=== PATIENT | female | born 1985 | race Caucasian/White ===

== ENCOUNTER 2018-03-05 02:14 | Emergency (ER) | payer OTHER ==
--- NOTE | 2018-03-05 02:31 | EDPHY ---
H & P Stated Complaint: suprapubic pain that woke pt up from sleep Time Seen by Provider: 03/05/18 02:31 HPI/ROS: HPI CHIEF COMPLAINT: Sudden onset pelvic pain. HISTORY OF PRESENT ILLNESS: This is a 32-year-old female, she is otherwise healthy without any significant medical history presents emergency room with sudden onset pelvic pain. Patient states she was having intercourse. She got sudden-onset mainly right-sided adnexal sharp stabbing pain. Progressively got worse. She stepped to stop having intercourse. She now complains of some right -sided chest pain with this. Right upper abdominal pain. However main complaint of pain is right adnexal pain. Patient has never had this before. She is unsure if she is . Past Medical History: Denies significant medical history Past Surgical History: No recent surgical history Social History: Denies drugs alcohol tobacco. Family History: Noncontributory. ROS REVIEW OF SYSTEMS: 10 Systems were reviewed and negative with the exception of the elements mentioned in the history of present illness. Exam Constitutional triage nursing summary reviewed, vital signs reviewed, awake/ alert. Eyes normal conjunctivae and sclera, EOMI, PERRLA. HENT normal inspection, atraumatic, moist mucus membranes, no epistaxis, neck supple/ no meningismus, no raccoon eyes. Respiratory clear to auscultation bilaterally, normal breath sounds, no respiratory distress, no wheezing. Cardiovascular rate normal, regular rhythm, no murmur, no edema, distal pulses normal. Gastrointestinal moderate amount of tenderness and right adnexa, left adnexa and suprapubic. , normal bowel sounds, no distension, no pulsatile mass. Genitourinary no CVA tenderness. Musculoskeletal no midline vertebral tenderness, full range of motion, no calf swelling, no tenderness of extremities, no meningismus, good pulses, neurovascularly intact. Skin pink, warm, & dry, no rash, skin atraumatic. Neurologic awake, alert and oriented x 3, AAOx3, moves all 4 extremities equally, motor intact, sensory intact, CN II-XII intact, normal cerebellar, normal vision, normal speech. Psychiatric normal mood/affect. Heme/Lymph/Immune no lymphadenopathy. Differential Diagnosis: Includes but is not limited to in a particular order ruptured ovarian cyst, ovarian torsion, ruptured ectopic , Medical Decision Making: Plan for this patient IV establishment with IV fluid bolus, IV Dilaudid for pain control, test, ultrasound of the pelvis, EKG. Re-evaluate. Re-evaluation: EKG interpretation by me on record in [facility] [employer] system. Impression time of EKG 2:40 a.m., sinus bradycardia. No ST elevation no ST depression. Ultrasound of pelvis shows free fluid in the pelvis. A right 10 mm follicle. A left 22 mm follicle. Free fluid around the right ovary. Good blood flow to both ovaries. Most likely ruptured ovarian cyst. test is negative. Vital signs are stable. H&H are stable. 0407: Patient re-evaluated this time feeling much better. Pain is well controlled. Discussed results of ultrasound. Discussed return precautions with her. She is comfortable going home. H&H are reviewed. Negative . Plan for discharge home with ibuprofen for mild pain Bristol for severe pain. Patient understands return emergency room if worsening abdominal pain, fever, vomiting. Source: Patient - Personal History LMP (Females 10-55): Over 28 Days Ago Current Tetanus/Diphtheria Vaccine: Unsure Current Tetanus Diphtheria and Acellular Pertussis (TDAP): Unsure - Medical/Surgical History Hx Asthma: No Hx Chronic Respiratory Disease: No Hx Diabetes: No Hx Cardiac Disease: No Hx Renal Disease: No Hx Cirrhosis: No Hx Alcoholism: No Hx HIV/AIDS: No Hx Splenectomy or Spleen Trauma: No Other PMH: UTIs - Social History Smoking Status: Never smoked Constitutional: Initial Vital Signs Temperature (C) 36.6 C 03/05/18 02:15 Heart Rate 81 03/05/18 02:15 Respiratory Rate 16 03/05/18 02:15 Blood Pressure 113/66 03/05/18 02:15 O2 Sat (%) 100 03/05/18 02:15 O2 Delivery Mode Room Air Allergies/Adverse Reactions: No Known Allergies Allergy (Verified 03/05/18 02:19) Home Medications: Medication Instructions Recorded NO HOME MEDS 02/17/10 Hydrocodone/APAP 5/325 [[place] 1 - 2 tab PO Q4H PRN #10 tab 03/05/18 5/325] Ibuprofen [Motrin (*)] 800 mg PO Q6-8PRN #10 tab 03/05/18 Medical Decision Making - Data Points Laboratory Results: Laboratory Results 03/05/18 02:46 03/05/18 02:46 03/05/18 03/05/18 03/05/18 02:49 02:46 02:46 WBC RBC Hgb Hct MCV MCH MCHC RDW Plt Count MPV Neut % (Auto) Lymph % (Auto) [place] % (Auto) Eos % (Auto) Baso % (Auto) Nucleat RBC Rel Count Absolute Neuts (auto) Absolute Lymphs (auto) Absolute Monos (auto) Absolute Eos (auto) Absolute Basos (auto) Absolute Nucleated RBC Immature Gran % Immature Gran # PT INR APTT Sodium 137 mEq/L mEq/L (135-145) Potassium 3.5 mEq/L mEq/L (3.3-5.0) Chloride 105 mEq/L mEq/L (97-110) Carbon Dioxide 22 mEq/l mEq/l (22-31) Anion Gap 10 mEq/L mEq/L (6-14) BUN 19 mg/dL mg/dL (7-23) Creatinine 0.8 mg/dL mg/dL (0.6-1.0) Estimated GFR > 60 Glucose 97 mg/dL mg/dL (70-100) Calcium 9.8 mg/dL mg/dL (8.5-10.4) Total Bilirubin 0.1 mg/dL mg/dL (0.1-1.4) Conjugated Bilirubin 0.0 mg/dL mg/dL (0.0-0.5) Unconjugated Bilirubin 0.1 mg/dL mg/dL (0.0-1.1) AST 20 IU/L IU/L (14-46) ALT 24 IU/L IU/L (9-52) Alkaline Phosphatase 50 IU/L IU/L (38-126) POC Troponin I 0.01 ng/mL ng/mL (0.00-0.08) Total Protein 6.4 g/dL g/dL (6.3-8.2) Albumin 4.0 g/dL g/dL (3.5-5.0) Lipase 151 IU/L IU/L (23-300) Beta HCG, Qual NEGATIVE Urine Color Urine Appearance Urine pH Ur Specific [place] Urine Protein Urine Ketones Urine Blood Urine Nitrate Urine Bilirubin Urine Urobilinogen Ur Leukocyte Esterase Urine Glucose 03/05/18 03/05/18 03/05/18 02:46 02:46 02:20 WBC 7.67 10^3/uL 10^3/uL (3.80-9.50) RBC 4.44 10^6/uL 10^6/uL (4.18-5.33) Hgb 14.5 g/dL g/dL (12.6-16.3) Hct 41.7 % % (38.0-47.0) MCV 93.9 fL fL (81.5-99.8) MCH 32.7 pg pg (27.9-34.1) MCHC 34.8 g/dL g/dL (32.4-36.7) RDW 12.0 % % (11.5-15.2) Plt Count 193 10^3/uL 10^3/uL (150-400) MPV 9.9 fL fL (8.7-11.7) Neut % (Auto) 52.2 % % (39.3-74.2) Lymph % (Auto) 38.1 % % (15.0-45.0) Harrison % (Auto) 6.6 % % (4.5-13.0) Eos % (Auto) 2.6 % % (0.6-7.6) Baso % (Auto) 0.4 % % (0.3-1.7) Nucleat RBC Rel Count 0.0 % % (0.0-0.2) Absolute Neuts (auto) 4.00 10^3/uL 10^3/uL (1.70-6.50) Absolute Lymphs (auto) 2.92 10^3/uL 10^3/uL (1.00-3.00) Absolute Monos (auto) 0.51 10^3/uL 10^3/uL (0.30-0.80) Absolute Eos (auto) 0.20 10^3/uL 10^3/uL (0.03-0.40) Absolute Basos (auto) 0.03 10^3/uL 10^3/uL (0.02-0.10) Absolute Nucleated RBC 0.00 10^3/uL 10^3/uL (0-0.01) Immature Gran % 0.1 % % (0.0-1.1) Immature Gran # 0.01 10^3/uL 10^3/uL (0.00-0.10) PT 12.8 SEC SEC (12.0-15.0) INR 0.94 (0.83-1.16) APTT 23.5 SEC SEC (23.0-38.0) Sodium Potassium Chloride Carbon Dioxide Anion Gap BUN Creatinine Estimated GFR Glucose Calcium Total Bilirubin Conjugated Bilirubin Unconjugated Bilirubin AST ALT Alkaline Phosphatase POC Troponin I Total Protein Albumin Lipase Beta HCG, Qual Urine Color PALE YELLOW Urine Appearance CLEAR Urine pH 8.0 H (5.0-7.5) Ur Specific [place] 1.008 (1.002-1.030) Urine Protein NEGATIVE (NEGATIVE) Urine Ketones NEGATIVE (NEGATIVE) Urine Blood NEGATIVE (NEGATIVE) Urine Nitrate NEGATIVE (NEGATIVE) Urine Bilirubin NEGATIVE (NEGATIVE) Urine Urobilinogen NEGATIVE EU EU (0.2-1.0) Ur Leukocyte Esterase NEGATIVE (NEGATIVE) Urine Glucose NEGATIVE (NEGATIVE) Medications Given: Discontinued Medications Hydromorphone HCl (Dilaudid) 0.5 mg IVP EDNOW ONE Stop: 03/05/18 02:36 Last Admin: 03/05/18 03:03 Dose: 0.5 mg Sodium Chloride (Ns) 1,000 mls @ 0 mls/hr IV EDNOW ONE; Wide Open PRN Reason: Protocol Stop: 03/05/18 02:36 Last Admin: 03/05/18 03:03 Dose: 1,000 mls Ondansetron HCl (Zofran) 4 mg IVP EDNOW ONE Stop: 03/05/18 02:36 Last Admin: 03/05/18 03:03 Dose: 4 mg Point of Care Test Results: Chemistry 03/05/18 02:49 POC Troponin I 0.01 ng/mL ng/mL (0.00-0.08) Departure - Departure Disposition: Home, Routine, Self-Care Clinical Impression: Ruptured ovarian cyst Condition: Good Instructions: Ruptured Ovarian Cyst (ED) Additional Instructions: 1. Take it easy over the next 72 hr. 2. Return emergency room if you have worsening abdominal pain fever vomiting 3. Anti-inflammatory pain medicine for mild pain control 4. [place] for severe pain 5. Return if worse. Referrals: William Morejon MD [Primary Care Provider] - As per Instructions Lety Gonzales DO [Doctor of Osteopathy] - As per Instructions Prescriptions: Hydrocodone/APAP 5/325 [[place] 5/325] 1 - 2 tab PO Q4H PRN #10 tab PRN Reason: Pain, Moderate Ibuprofen [Motrin (*)] 800 mg PO Q6-8PRN #10 tab
[2018-03-05] MEDS ORDERED: HYDROmorphONE/DILAUDID 2 MG/ML INJ IVP ONE (02:35)
[2018-03-05] MEDS ORDERED: ONDANSETRON 4 MG/2 ML VIAL IVP ONE (02:35)
[2018-03-05] MEDS ORDERED: NS 1,000 ML IV ONE (02:35)
[2018-03-05 02:57] LABS: PLATELET COUNT 193 10^3/uL (150-400)
[2018-03-05 03:04] LABS: INR 0.94 (0.83-1.16); PROTIME(PATIENT) 12.8 SEC (12.0-15.0)
[2018-03-05] MEDS ORDERED: KETOROLAC 15 MG/1 ML SDV IVP ONE (03:54)
[2018-03-05 04:40] VITALS: BP 95/50
--- NOTE | 2018-03-05 08:20 | CPEKG ---
Test Reason : OPEN Blood Pressure : / mmHG Vent. Rate : 073 BPM Atrial Rate : 072 BPM P-R Int : 130 ms QRS Dur : 072 ms QT Int : 389 ms P-R-T Axes : 080 075 058 degrees QTc Int : 429 ms Sinus rhythm Confirmed by Fransisco Cope ([id number]) on 03/05/2018 8:19:42 AM Referred By: Confirmed By:Fransisco Cope
== END 2018-03-05 04:39 | disposition home or self-care (01) ==
DX: N83.291 Other ovarian cyst, right side (principal); N83.292 Other ovarian cyst, left side
CPT/HCPCS: 84484-PO; 96374; J1170; J1885; J2405